=== PATIENT | male | born 2005 | race Two or more races ===

== ENCOUNTER 2025-07-09 11:03 | Emergency (ER) | payer MEDICAID, SELFPAY ==
[2025-07-09 11:16] VITALS: BP 145/88; PULSE 106; RESP 16; TEMP 37.2; O2SAT 98; BMI 24.5
--- NOTE | 2025-07-09 11:35 | PD.EDADULT ---
ED General RME/HPI General Chief complaint: Wound/Laceration Stated complaint: LAC ON R) MARTINEZ Time Seen by Provider: 07/09/25 11:30 Arrival date/time: 07/09/25 11:03 CC: Right lower leg pain HPI patient fell on concrete steps causing a laceration to the skin overlying the tibial spine. Localized pain is 3-4 and a 10 scale patient is not know his tetanus status. No other complaints denies falling down the entire stairs, denies loss of consciousness altered level of consciousness. Related Data Previous Rx's ?Medication ?Instructions ?Recorded cephalexin 500 mg capsule 500 mg PO BID #14 caps 07/09/25 Allergies Allergy/AdvReac Type Severity Reaction Status Date / Time No Known Allergies Allergy Verified 07/09/25 11:08 Review of Systems Review of Systems Narrative Review of Systems: GEN: No fever, no chills, no weight loss EYES: No discharge, no visual changes, no pain HEENT: No ear pain, no congestion, no sore throat PULM: No shortness of breath, no cough, no congestion CV: No chest pain, no dyspnea on exertion, no palpitations GI: No nausea, no vomiting, no diarrhea, no pain, no constipation : No frequency, no urgency, no dysuria MUSC/SKEL: No joint pain, no back pain SKIN: + Laceration, no rash PSYCH: No hallucinations, no depression HEME/LYMPH: No easy bleeding or bruising tendencies NEURO: No weakness, no headache Past Medical History Social History SMOKING STATUS: Never smoker ED Exam Narrative Physical exam: [General: Not in any acute distress Head normocephalic HEENT: Eyes pupils are PERRLA EOMs are intact mouth pink moist membranes uvula is midline swallow symmetrical phonation is normal. Within acceptable limits Neck is supple nontender Chest equal chest rise nontender to palpation Respiratory: Clear to auscultation no wheezes crackles or rubs CV: Rate rhythm is regular no murmurs rubs or clicks Abdomen is soft nontender no masses positive bowel sounds all 4 quadrants Back: No CVA tenderness no spinous process tenderness from cervical spine thoracic and lumbar spine Skin: 2 cm vertical full-thickness laceration to the tibial spine midshaft. Minimal amount of oozing. Intact no petechiae rash induration ulceration or crepitus Extremities: Tenderness to the calf of the right lower extremity. No ecchymosis. Full range of motion of the ankle and toes. Cap refill in the digits less than 2 seconds neurosensory intact. Moving all other extremities against resistance cap refill less than 2 seconds neurosensory intact Neuro: Awake alert oriented x3 Glascow coma 15 no focal deficits] Course Quality Measures none Orders Category Date Time Status Set Up Suture Tray STAT Care 07/09/25 11:35 Completed Lidocaine 1% 20 ml [Xylocaine 1% 20 ML] Med 07/09/25 11:35 Discontinued 20 ml INFL X1 ONE TET,DIP/PERT AC (Adult)-Tdap [Boostrix Adult (Tdap) Med 07/09/25 11:40 Discontinued Vacc] 0.5 ml IMI .ONCE ONE Vital Signs Vital signs: Vital Signs Temperature 98.9 F 07/09/25 11:16 Pulse Rate 106 H 07/09/25 11:16 Respiratory Rate 16 07/09/25 11:16 Blood Pressure 145/88 H 07/09/25 11:16 Pulse Oximetry (%) 98 07/09/25 11:16 Oxygen Delivery Method Room Air 07/09/25 11:16 PROCEDURES: Procedure Comment Laceration repair: Anesthesia: 1% lidocaine without epinephrine 3 mL injected the local site site was cleaned and probed with Betadine no foreign body was found site was approximated with 2 interrupted sutures of 3-0 Ethilon with good approximation without complication patient tolerated the procedure well. Bulky dressing was applied. Discharge Plan Plan Patient Disposition: HOME (Self Care) Patient condition on transfer: Stable Prescriptions/Referrals Prescriptions/Med Rec: New cephalexin 500 mg capsule 500 mg PO BID Qty: 14 0RF Problem List Clinical Impression: Laceration Patient/Caregiver Discharge Instructions Education Materials: ED Laceration: All Closures Additional Instructions: Sutures out in 12 to 14 days. Any signs or symptoms of infection such as redness or pus return the emergency room meetly for further evaluation. Print Language: Maltese Stand Alone Forms: Krystle Award Info., Work/School Release, Patient Portal Info Letter TOBIAS/ALISSA Supervising Physician TOBIAS/ALISSA Supervising Physician: Caden Ayers ENP [facility] Clinical Information Provided by: patient Medical Records reviewed [facility] Meds/Rx considered, not ordered None Labs/Rad/Tests considered, not ordered None Chronic Illness/Social Conditions which may negatively complicate care or outcome(s)-explain: None or not applicable EKG EKG not done Labs Labs: none Imaging Imaging interpretation: none Medication Administration(s) Medication Administration History Discontinued Medications Diphtheria/Tetanus/Acell Pertussis (Diphth,Pertuss(Acell),Tet Vac 0.5 Ml Syr- Adult) 0.5 ml IMi .ONCE ONE Stop: 07/09/25 11:41 Last Admin: 07/09/25 12:19 Dose: 0.5 ml Documented By: Lidocaine HCl (Lidocaine Hcl 1% 20 Ml Vial) 20 ml INFL X1 ONE Stop: 07/09/25 11:36 Last Admin: 07/09/25 12:20 Dose: 20 ml Documented By: Diagnosis Differential Diagnosis ED Complaint MDM: Laceration abrasion avulsion
[2025-07-09] MEDS: DIPHTH,PERTUSS(ACELL),TET VAC 0.5 ML SYR- ADULT IMi (12:19)
[2025-07-09] MEDS: LIDOCAINE HCL 1% 20 ML VIAL INFL (12:20)
== END 2025-07-09 13:03 | disposition home or self-care (01) ==
LOC: SERX 12:34
PROVIDERS: Emergency Provider Emergency Medicine
DX: S81.811A Laceration without foreign body, right lower leg, initial encounter (principal); W18.39XA Other fall on same level, initial encounter; Z23 Encounter for immunization
CPT/HCPCS: 12001; 90471; 90715; 99282; J3490